=== PATIENT | male | born 1955 | race Caucasian/White ===

== ENCOUNTER 2017-07-01 19:37 | Emergency (ER) | payer MEDICARE, BC ==
[2017-07-01] MEDS ORDERED: Metoprolol Tartrate 25 MG Tab PO ONE (20:11)
[2017-07-01 20:51] LABS: CHLORIDE,CL 101 mmol/L (101-111); SODIUM,NA 138 mmol/L (135-145)
[2017-07-01 20:56] VITALS: BP 135/94
--- NOTE | 2017-07-01 20:58 | EDM.PDOC ---
ED HPI GENERAL MEDICAL PROBLEM - General Chief Complaint: General Stated Complaint: PORT CHECK, [id number] Time Seen by Provider: 07/01/17 20:00 Source of Information: Reports: Patient, Family History Limitations: Reports: No Limitations - History of Present Illness INITIAL COMMENTS - FREE TEXT/NARRATIVE: ED with family. 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 Daughter- in law familiar with accessing ports as RN. Notes she attempted to access tonight and first appeared that there was leakage into skin but initially able to withdraw, noted she called "[facility] " and was forwarded to oncology that instructed her to re-access. On second attempt unable to flush or get return. Onset: Today Right Chest Pain Score (Numeric/FACES): 1 - Related Data Allergies Allergy/AdvReac Type Severity Reaction Status Date / Time Zxijhbi-[id number]-Srb Reductase Allergy Muscle Verified 07/01/17 19:55 Inhibitor Aches Home Meds: Home Meds Aspirin [Low Dose Aspirin EC] 81 mg PO DAILY 11/29/14 [History] Multivitamin [Multi-Vitamin Daily] 1 cap PO DAILY 11/29/14 [History] Omeprazole [Omeprazole] 1 tab PO ASDIRECTED PRN 11/29/14 [History] Radicava 60 mg IV DAILY 07/01/17 [History] Past Medical History Cardiovascular History: Reports: High Cholesterol Neurological History: Reports: Other (See Below) Other Neuro History: ALS Social & Family History - Family History Family Medical History: Noncontributory - Tobacco Use Smoking Status *Q: Never Smoker Second Hand Smoke Exposure: No - Caffeine Use Caffeine Use: Reports: Coffee - Alcohol Use Days Per Week of Alcohol Use: 0 Number of Drinks Per Day: 2 Total Drinks Per Week: 0 - Recreational Drug Use Recreational Drug Use: No ED ROS GENERAL - Review of Systems Review Of Systems: See Below Constitutional: Reports: No Symptoms HEENT: Reports: No Symptoms Respiratory: Reports: No Symptoms Cardiovascular: Reports: No Symptoms GI/Abdominal: Reports: No Symptoms : Reports: No Symptoms Musculoskeletal: Reports: No Symptoms Skin: Reports: Wound (clean surgical site right upper chest) Neurological: Reports: Pre-Existing Deficit ED EXAM, GENERAL - Physical Exam Exam: See Below Exam Limited By: No Limitations General Appearance: Alert, No Apparent Distress Eye Exam: Bilateral Eye: EOMI Ears: Normal External Exam Nose: Normal Inspection Throat/Mouth: Normal Inspection, Normal Lips Head: Atraumatic Neck: Normal Inspection Respiratory/Chest: No Respiratory Distress, Lungs Clear Cardiovascular: Normal Peripheral Pulses, Regular Rate, Rhythm GI/Abdominal: Normal Bowel Sounds Back Exam: Normal Inspection. No: CVA Tenderness (L), CVA Tenderness (R) Extremities: Normal Inspection Neurological: Alert, Oriented, Normal Cognition. No: Normal Gait, No Motor/ Sensory Deficits Skin Exam: Warm, Dry, Wound/Incision (right upper chest kirsty-cath. IV access present. Nurse unable to flush.). No: Normal Color (flushed) Course - Vital Signs Last Recorded V/S: Last Vital Signs Temp 98.2 F 07/01/17 20:25 Pulse 91 07/01/17 20:54 Resp 16 07/01/17 19:48 BP 135/94 H 07/01/17 20:54 Pulse Ox 95 07/01/17 19:48 - Orders/Labs/Meds Orders: Active Orders 24 hr Category Date Time Status CULTURE BLOOD [BC] Stat Lab 07/01/17 20:21 Received CULTURE BLOOD [BC] Stat Lab 07/01/17 21:25 Received Blood Culture x2 Reflex Set [OM.PC] Stat Oth 07/01/17 20:07 Ordered Labs: Laboratory Tests 07/01/17 07/01/17 07/01/17 Range/Units 20:21 20:21 20:21 WBC 8.6 (5.0-10.0) 10^3/uL RBC 5.13 (4.6-6.2) 10^6/uL Hgb 15.8 (14.0-18.0) g/dL Hct 47.0 (40.0-54.0) % MCV 91.6 (80-100) fL MCH 30.8 (27.0-34.0) pg MCHC 33.6 (33.0-35.0) g/dL Plt Count 257 (150-450) 10^3/uL Neut % (Auto) 65.4 (42.2-75.2) % Lymph % (Auto) 23.1 (20.5-50.1) % [place] % (Auto) 8.7 H (2-8) % Eos % (Auto) 2.3 (1.0-3.0) % Baso % (Auto) 0.5 (0.0-1.0) % Sodium 138 (135-145) mmol/L Potassium 3.6 (3.6-5.0) mmol/L Chloride 101 (101-111) mmol/L Carbon Dioxide 25.0 (21.0-31.0) mmol/L Anion Gap 15.6 BUN 12 (7-18) mg/dL Creatinine 0.5 L (0.6-1.3) mg/dL Est Cr Clr Drug Dosing 162.22 mL/min Estimated GFR (MDRD) > 60 BUN/Creatinine Ratio 24.00 Glucose 146 H (74-105) mg/dL Lactic Acid 1.5 (0.5-2.2) mmol/L Calcium 9.4 (8.4-10.2) mg/dl Total Bilirubin 0.6 (0.2-1.0) mg/dL AST 60 H (10-42) IU/L ALT 100 H (10-60) IU/L Alkaline Phosphatase 55 (42-121) IU/L C-Reactive Protein (0.0-1.3) mg/dL Total Protein 7.7 (6.7-8.2) g/dl Albumin 4.4 (3.2-5.5) g/dl Globulin 3.3 Albumin/Globulin Ratio 1.33 Amylase 54 (28-100) U/L Lipase 37 (22-51) U/L 11/20/17 Range/Units 20:21 WBC (5.0-10.0) 10^3/uL RBC (4.6-6.2) 10^6/uL Hgb (14.0-18.0) g/dL Hct (40.0-54.0) % MCV (80-100) fL MCH (27.0-34.0) pg MCHC (33.0-35.0) g/dL Plt Count (150-450) 10^3/uL Neut % (Auto) (42.2-75.2) % Lymph % (Auto) (20.5-50.1) % [place] % (Auto) (2-8) % Eos % (Auto) (1.0-3.0) % Baso % (Auto) (0.0-1.0) % Sodium (135-145) mmol/L Potassium (3.6-5.0) mmol/L Chloride (101-111) mmol/L Carbon Dioxide (21.0-31.0) mmol/L Anion Gap BUN (7-18) mg/dL Creatinine (0.6-1.3) mg/dL Est Cr Clr Drug Dosing mL/min Estimated GFR (MDRD) BUN/Creatinine Ratio Glucose (74-105) mg/dL Lactic Acid (0.5-2.2) mmol/L Calcium (8.4-10.2) mg/dl Total Bilirubin (0.2-1.0) mg/dL AST (10-42) IU/L ALT (10-60) IU/L Alkaline Phosphatase (42-121) IU/L C-Reactive Protein 0.6 (0.0-1.3) mg/dL Total Protein (6.7-8.2) g/dl Albumin (3.2-5.5) g/dl Globulin Albumin/Globulin Ratio Amylase (28-100) U/L Lipase (22-51) U/L Meds: Medications Discontinued Medications Generic Name Dose Route Start Last Admin Trade Name Freq PRN Reason Stop Dose Admin Metoprolol Tartrate 25 mg 07/01/17 20:11 07/01/17 20:54 Lopressor PO 07/01/17 20:12 25 mg ONETIME ONE Administration - Re-Assessments/Exams Free Text/Narrative Re-Assessment/Exam: 07/02/17 06:37 TC consult with [place] ED provider. Recommendation for IR in am. ED provider reported placing order for IR procedure. Family is to call at 8am. Home IVF infusions may be given though peripheral site. Departure - Departure Time of Disposition: 21:52 Disposition: Home, Self-Care 01 Condition: Fair Clinical Impression: Malfunction of portocaval shunt Qualifiers: Encounter type: initial encounter Qualified Code(s): T82.598A - Other mechanical complication of other cardiac and vascular devices and implants, initial encounter - Discharge Information Instructions: [facility], [id number] Referrals: PCP,None [Ordering Only Provider] - Forms: ED Department Discharge Additional Instructions: Follow up with [place] [facility]. Call [phone] at 8am ( order placed in "One Chart" by [place] ED provider May utilize peripheral IV for Radicava - My Orders Last 24 Hours: My Active Orders 07/01/17 20:07 Blood Culture x2 Reflex Set [OM.PC] Stat 07/01/17 20:21 CULTURE BLOOD [BC] Stat 07/01/17 21:25 CULTURE BLOOD [BC] Stat - Assessment/Plan Last 24 Hours: My Active Orders 07/01/17 20:07 Blood Culture x2 Reflex Set [OM.PC] Stat 07/01/17 20:21 CULTURE BLOOD [BC] Stat 07/01/17 21:25 CULTURE BLOOD [BC] Stat
== END 2017-07-01 22:07 | disposition home or self-care (01) ==
LOC: DL.ED 19:37
DX: T82.598A Other mechanical complication of other cardiac and vascular devices and implants, initial encounter (principal); E78.00 Pure hypercholesterolemia, unspecified; Z79.82 Long term (current) use of aspirin; Z79.899 Other long term (current) drug therapy; Z88.8 Allergy status to other drugs, medicaments and biological substances
CPT/HCPCS: 36415; 71010; 80053; 82150; 83605; 83690; 85025; 86140; 87040; 99282; 99284; A9270